=== PATIENT | male | born 1990 | race Caucasian/White ===

== ENCOUNTER 2016-10-28 21:45 | Inpatient (IN) | payer OTHER ==
--- NOTE | ~2016-10-28 | PA ---
Unit #: [id number] #: [id number] Patient: SHARON NEWSOME [id number] [facility] [address] [place] [address] [id number] MR#: [id number] NAME: SHARON NEWSOME ROOM: P266 Age: 26 Sex: M Admission Date: 10/28/2016 : 1990 Date of Assessment: 10/29/2016 Attending Physician: aD Sheppard M.D. Admitting Physician: Da Sheppard M.D. Primary Care Physician: Primary Care Physician No PSYCHIATRIC ASSESSMENT DATE OF SERVICE 10/29/2016. IDENTIFYING INFORMATION He is a 26-year-old male, admitted to [address] [place] [address] related to suicidal ideation with a plan to cut his wrist or take pills. INFORMANT The patient, reliability is good. CHIEF COMPLAINT "I need help and I'm depressed." HISTORY OF PRESENT ILLNESS The patient is a 26-year-old male, who presented for treatment related to severe depression with thoughts of suicide, which include a plan to take pills or cut his wrist. He reports his depression has been severe and includes paranoia, agitation, and severe anxiety. He reports positive auditory hallucinations telling him "to do this or to do ," but he would not elaborate as to what exactly they are telling him to do. He reports the inability to complete activities of daily living and will wear the same clothes 4 days at a time. He feels his mood fluctuates from extreme highs to extreme lows. PAST PSYCHIATRIC HISTORY He reports a history of inpatient treatment last year in 2016 at [facility] for depression. He also reports a history of suicide attempts in the past, and both attempts were in 2013, one was an overdose, where he took 15 aspirin tablets, and another time, he attempted to starve himself where he reports he lost 10 pounds in a matter of a week. FAMILY HISTORY He reports his father has a history of depression, anxiety, and alcohol abuse, and his sister has a diagnosis of anxiety and PTSD. SOCIAL HISTORY He lives with his father, and he is unemployed and unable to maintain employment due to his severe depression. MEDICAL HISTORY He denies any significant medical diagnoses and denies taking any current medications for medical issues. Unit #: [id number] #: [id number] Patient: SHARON NEWSOME MEDICATION HISTORY He reports one trial of citalopram in the past and reports that it is ineffective. MENTAL STATUS EXAMINATION Mental status exam at this time reveals the patient to be a well-developed, somewhat well-nourished, disheveled male, appearing his stated age. He was in no apparent physical distress at the time of this examination. He was awake, alert, and oriented in all spheres. His mood was dysthymic with a congruent affect. His speech was generally relevant and coherent. There were no gross deficits in memory or cognition noted, and his intelligence is judged to be in the average range based on fund of knowledge. He was cooperative throughout this interview, and he currently denies suicidal or homicidal ideation. He did report that he has auditory hallucinations daily, but denied them currently. His judgment and insight appear to be reasonably intact. ASSETS AND LIABILITIES His assets are motivation for change. Liabilities; lack of social support and lack of resources. ADMITTING DIAGNOSIS Major depressive disorder, recurrent, severe, with psychotic symptoms. PSYCHIATRIC PLAN AND TREATMENT GOALS The patient remains hospitalized for safety and stabilization. He will be placed on suicidal precautions and q.15 minute checks for safety. ESTIMATED LENGTH OF STAY 3 to 5 days with followup take place through the auspices of community mental health resources. Dictated by... Abby Haynes APRN for Tameka Campuzano/dilcia TD: 10/31/2016 06:27 JOB #: [id number] PSYCHIATRIC ASSESSMENT X ABBY HAYNES PSYCHIATRIC ASSESSMENT
--- NOTE | ~2016-10-28 | A ---
[facility] Nutrition Therapy DATE: 10/31/16 Patient: SHARON MARTINOINNA Physician: NADINE Address: [address] [place] [address] Room/Bed: [address], Zip: [place] [address] Admit Date: 10/28/16 Date of : [birth year] Height: 6 3 Weight: [phone] NUTRITIONAL ASSESSMENT: REASON: Seen for 1 point malnutrition risk score re: unintentional weight loss Admitting Dx 26 y/o male admitted with depression, anxiety, paranoia PMH: 1-3 cigarette per day smoker, marijuana use 2-4 x weekly, denies ETOH use Anthropometrics: Ht: 75", Wt: 170 lbs, BMI: 21, 87% IBW Labs: WNL Meds: Tylenol, Zyban, Milk of Mg, Mag-Al Assessment: Chart reviewed, events noted. Patient is single, unemployed, living with his father. He is on a regular diet, upon admission reports poor appetite, "can barely eat," weight loss of approx. 10 lbs in an unknown time frame. No past weights available, BMI normal. Patient's appetite is now documented as good. See RD recs below. Dx: Unintentional weight loss r/t depression, anxiety AEB 1 point malnutrition risk score, reported 10 lb loss (5.5% loss) is an unknown time frame. Intervention: See recs below Monitoring, Evaluation and Goals: 1. Adequate oral intake > 50% of meals. 2. Prevent further unintentional weight loss. Recommendations: 1. Continue regular diet, appreciate staff to encourage adequate oral intake. Patient would be appropriate for large portion entrees at lunch and dinner- if desired, please add to diet order and RD will approve. 2. If PO intake is < 50% of meals please order Ensure BID (available in chocolate/vanilla, requires MD order). 3. Please weight q 3 days for monitoring purposes. 4. Please consult RD with any further nutritional needs. Mild nutrition risk [facility] Nutrition Therapy DATE: 10/31/16 Patient: SHARON JEROD Physician: NADINE Address: [address] [place] [address] Room/Bed: [address], Zip: [place] [address] Admit Date: 10/28/16 Date of : [birth year] Height: 6 3 Weight: [phone] Respectfully, Sheba Chery RD, LD Food and Nutritional Services [facility] cc: client file
--- NOTE | ~2016-10-28 | HP ---
Unit #: [id number] #: [id number] Patient: SHARON NEWSOME [id number] [place] [address] [id number] MR#: [id number] NAME: SHARON NEWSOME ROOM: P266 Age: 26 Sex: M Admission Date: 10/28/2016 : 1990 Attending Physician: Da Sheppard M.D. Admitting Physician: Da Sheppard M.D. Primary Care Physician: Primary Care Physician No HISTORY AND PHYSICAL HISTORY OF PRESENT ILLNESS Sharon is a 26-year-old male male admitted on 10/28/[address] [place] [address] for depression, anxiety, and paranoia. PAST MEDICAL HISTORY None. PAST SURGICAL HISTORY None. SOCIAL HISTORY Smokes 1 to 3 cigarettes daily. No alcohol use. Also reports use of marijuana 2 to 4 times weekly. He is currently single and living with his father. FAMILY HISTORY Noncontributory. REVIEW OF SYSTEMS CONSTITUTIONAL: No fever or chills. HEENT: Denies any sore throat, ear pain or runny nose. CARDIOVASCULAR: Denies chest pain, irregular heart rhythm or palpitations. CHEST: Denies shortness of breath or cough. No hemoptysis. GASTROINTESTINAL: Denies nausea, vomiting, diarrhea or chronic constipation. ENDOCRINE: Denies history of increased thirst or urination. No recent significant weight loss or gain. GENITOURINARY: Denies dysuria, frequency, or hematuria. SKIN: Denies any rashes. HEMATOLOGIC: Denies history of increased bleeding or bruising. MUSCULOSKELETAL: Denies any hot, swollen joints. No generalized muscle pain. NEUROLOGIC: Denies problems with vision or speech. No frequent, severe headaches. No numbness, tingling or weakness in any extremities. Denies loss of bladder or bowel control. CURRENT MEDICATIONS None. ALLERGIES None. PHYSICAL EXAMINATION Unit #: [id number] #: [id number] Patient: SHARON NEWSOME GENERAL: Alert, oriented, no acute distress. VITAL SIGNS: Blood pressure 118/85, heart rate 58, temperature 97.8. HEIGHT: 6 feet 3. WEIGHT: 170 pounds. SKIN: Warm, dry. No rashes or lesions, track schulz, cuts, etc. HEENT: Normocephalic. TMs not viewed. Oronasal passages clear. Conjunctivae clear. PERRLA. EOM is intact. NECK: No lymphadenopathy or thyromegaly. HEART: Regular rate and rhythm. No murmur, gallop, or rub. LUNGS: Clear to auscultation bilaterally. ABDOMEN: Soft, nontender without palpable masses or hepatosplenomegaly. : Not assessed. EXTREMITIES: No evidence of cyanosis, clubbing, or edema. Moves all extremities independently without obvious deficit. NEUROLOGICAL: Grossly within normal limits. Cranial Nerves: II: Visual coleman are intact. III, IV AND : Extraocular movements are intact. Pupils are equal, round and reactive to light. V: Facial sensation is grossly normal. VII: Facial movements and expression are normal. VIII: Auditory acuity grossly intact. IX, X: Uvula is midline. Phonation is normal. XI: Patient shrugs shoulders and turns head normally. XII: Tongue protrudes in the midline. Sensory and Motor Function: Sensory and motor sensation is grossly normal. Motor: moves all extremities well. Coordination: Gait is normal. Deep Tendon Reflexes: Intact. IMPRESSION Psychiatric admission. RECOMMENDATIONS PSYCHIATRIC: Per psychiatrist. MEDICAL: No contraindication to participate in this facility's activities. MEDICAL PROGNOSIS Good. MEDICAL CONDITION Stable. Dictated by... Dominique Schroeder/vincent TD: 10/29/2016 14:27 JOB #: [id number] Unit #: [id number] #: [id number] Patient: SHARON NEWSOME HISTORY AND PHYSICAL X DANY ANNE APRN X HISTORY AND PHYSICAL
--- NOTE | ~2016-10-28 | DS ---
Unit #: [id number] #: [id number] Patient: SHARON NEWSOME [id number] [facility] [address] [place] [address] [id number] MR#: [id number] NAME: SHARON NEWSOME ROOM: [facility] Age: 26 Sex: M Admission Date: 10/28/2016 : 1990 Discharge Date: 10/31/2016 Attending Physician: Da Sheppard M.D. Primary Care Physician: Primary Care Physician No DISCHARGE SUMMARY REASON FOR ADMISSION The patient is a 26-year-old single white male, admitted to the [facility] unit with increasing depression and thoughts of suicide. HOSPITAL COURSE The patient was admitted to the [facility] unit and placed on suicide precautions because of reported prior history of poor response to citalopram. He was begun on Wellbutrin SR 150 mg daily. He tolerated initiation of the medication without complaint. On 10/31/2016, the patient denied suicidal ideation and was in agreement with plan for followup in the intensive outpatient program provided by this facility. Discharge was ordered. FINAL DIAGNOSES Major depressive disorder, recurrent, moderate. DISPOSITION ON DISCHARGE The patient is discharged on the following medications: Wellbutrin SR 150 mg q.a.m. x7 days then 150 mg b.i.d. DISCHARGE INSTRUCTIONS No dietary or physical restrictions were placed on the patient at the time of discharge. FOLLOWUP Followup will take place in the intensive outpatient program provided by this facility and through the auspices of critical access hospital. PROGNOSIS The patient's prognosis is considered fair. Dictated by... Da Sheppard M.D. CB/dilcia TD: 10/31/2016 22:05 JOB #: [id number] Unit #: [id number] #: [id number] Patient: SHARON NEWSOME DISCHARGE SUMMARY X Da Sheppard MD X DISCHARGE SUMMARY
--- NOTE | ~2016-10-28 | PA ---
Unit #: [id number] #: [id number] Patient: SHARON NEWSOME [id number] [facility] [address] [place] [address] [id number] MR#: [id number] NAME: SHARON NEWSOME ROOM: P266 Age: 26 Sex: M Admission Date: 10/28/2016 : 1990 Date of Assessment: 10/30/2016 Attending Physician: Da Sheppard M.D. Admitting Physician: Da Sheppard M.D. Primary Care Physician: Primary Care Physician No PSYCHIATRIC ASSESSMENT IDENTIFYING INFORMATION The patient is a 26-year-old white male admitted to the [address] [place] [address] unit with worsening symptoms of depression and suicidal ideation. INFORMANT(S) Patient RELIABILITY Fair CHIEF COMPLAINT None given HISTORY OF PRESENT ILLNESS The patient is a 26-year-old single white male admitted to the [address] [place] [address] unit with a history of worsening depression. The patient reports no specific stressors, which have led to his depression. He does however report significant issues with poor motivation, inability to maintain employment, etc. The patient was reporting positive suicidal ideation. He has a history of one previous suicide attempt per his report. He complains of poor sleep, loss of appetite and feeling socially anxious. He has had suicidal thoughts including thoughts of cutting his wrists and taking pills. He has a history of one previous suicide attempt and states he was treated at "[facility]." PAST PSYCHIATRIC HISTORY As above. FAMILY HISTORY/SOCIAL HISTORY The patient's sister suffers from depression. The patient lives with his father. He is not presently employed. He completed high school. He reports a history of cannabis use, but is not presently abusing this substance. MEDICAL HISTORY The patient has no acute medical issues. MEDICATION HISTORY None ALLERGIES None Unit #: [id number] #: [id number] Patient: SHARON NEWSOME MENTAL STATUS EXAM At this time reveals the patient to be a well-developed, well-nourished white male, appearing his stated age. He is no apparent physical distress at the time of the examination. He was awake, alert, and oriented in all spheres. His mood is mildly dysphoric. His affect constricted. Speech is generally relevant and coherent. There are no gross deficits in memory or cognition noted. Intelligence is judged to be in the average range based on fund of knowledge. The patient is cooperative throughout the interview. He is currently endorsing positive suicidal ideation. He denies homicidal ideation, he denies any psychotic symptoms. His judgment and insight are noted to be intact. ASSETS Motivation for change, supportive family LIABILITIES Lack of resources DIAGNOSTIC IMPRESSION 1. Major depressive disorder, recurrent, moderate 2. Cannabis use disorder by history PSYCHIATRIC PLAN/TREATMENT GOALS The patient remains hospitalized for safety and stabilization. I will give a trial of Wellbutrin as the patient does have a purported history of a previous unsuccessful trial of Citalopram during today's interview. The patient will participate in appropriate rivera and milieu activities. ESTIMATED LENGTH OF STAY 5 days Dictated by... Da Sheppard M.D. COREEN/jarod TD: 10/30/2016 13:17 JOB #: [id number] PSYCHIATRIC ASSESSMENT X aD Sheppard MD X PSYCHIATRIC ASSESSMENT
[~2016-10-28 21:45] MED LIST: NIGHT COLD-FLU1 EACH PO; STOOL SOFTENER; STOOL SOFTENER1 EAC1 PO
[2016-10-29 10:05] LABS: BASOPHIL# 0.1 X10e3 (0-0.3); BASOPHIL% 1.2 % (0-2.5); EOSINOPHIL# 0.2 X10e3 (0-0.7); EOSINOPHIL% 2.9 % (0.0-7.0); HEMATOCRIT 39.5 % (38.0-50.0); HEMOGLOBIN 13.7 gm/dL (13.0-16.0); LYMPHOCYTE# 2.6 X10e3 (1.0-3.5); LYMPHOCYTE% 48.5 % (17.0-45.0); MEAN CELL VOLUME 89.4 FL (83-96); MEAN CORPUSCULAR HEMOGLOBIN 30.9 PG (28-34); MEAN CORPUSCULAR HGB CONC 34.6 g/dL (30-36); MEAN PLATELET VOLUME 8.7 FL (6.5-11.5); MONOCYTE# 0.4 X10e3 (0-1.0); MONOCYTE% 6.8 % (3.0-12.0); NEUTROPHIL# 2.2 X10e3 (1.5-7.1); NEUTROPHIL% 40.6 % (40-75); PLATELET COUNT 182 X10e3 (140-420); RED BLOOD COUNT 4.41 X10e (3.90-5.60); RED CELL DISTRIBUTION WIDTH 13.3 % (11.0-15.5); WHITE BLOOD COUNT 5.3 X10e3 (4.0-10.5)
[2016-10-29 10:06] LABS: DIFF IND NO
[2016-10-29 11:09] LABS: ALBUMIN SERUM 4.2 g/dL (3.5-5.0); ALKALINE PHOSPHATASE 38 U/L (32-92); ALT (SGPT) 15 U/L (10-40); AST (SGOT) 14 U/L (10-42); BILIRUBIN,TOTAL 1.1 mg/dL (0.2-2.0); BLOOD UREA NITROGEN 9 mg/dL (9-23); CALCIUM SERUM 8.6 mg/dL (8.4-10.2); CARBON DIOXIDE 28 mmol/L (22-31); CHLORIDE 106 mmol/L (100-111); CREATININE SERUM 0.9 mg/dL (0.6-1.4); GLOM FILT RATE Estimated ABOVE60 mL/min (>60); GLUCOSE FASTING 81 mg/dL (70-110); POTASSIUM 4.1 mmol/L (3.5-5.1); PROTEIN TOTAL SERUM 6.5 g/dL (6.0-8.3); SODIUM 139 mmol/L (135-145); THYROID STIMULATING HORMONE 1.38 uIU/ml (0.34-5.60)
[2016-10-29 11:18] LABS: FREE THYROXIN (T4) 0.98 ng/dL (0.58-1.64)
[2016-10-31 13:09] LABS: URINE APPEARANCE TURBID; URINE BILIRUBIN NEG (NEG); URINE BLOOD NEG (NEG); URINE COLOR YELLOW; URINE GLUCOSE NEG (NEG); URINE KETONE NEG (NEG); URINE LEUKOCYTE ESTERASE NEG (NEG); URINE NITRATE NEG (NEG); URINE PROTEIN NEG (NEG); URINE SPECIFIC GRAVITY 1.024 (1.003-1.035); URINE UROBILINOGEN 0.2 MG/DL (NEG)
[2016-10-31 14:04] LABS: AMPHETAMINE NEG (NEG); BARBITURATES NEG (NEG); BENZODIAZEPINES NEG (NEG); COCAINE NEG (NEG); MARIJUANA POS (NEG); OPIATES NEG (NEG); TRICYCLIC ANTIDEPRESSANTS NEG (NEG); U METHADONE NEG (NEG)
== END 2016-10-31 18:00 | disposition home or self-care (01) | DRG 885 ==
LOC: P2L 21:45
PROVIDERS: Specialist
DX: F33.1 Major depressive disorder, recurrent, moderate (principal); R45.851 Suicidal ideations; F12.10 Cannabis abuse, uncomplicated; Z72.0 Tobacco use; Z56.0 Unemployment, unspecified
CPT/HCPCS: 80053; 80307; 81003; 84439; 84443; 85025